=== PATIENT | female | born 1980 | race Caucasian/White ===

== ENCOUNTER → 2017-01-14 | Outpatient (CLI) | payer MEDICARE, OTHER ==
[~2017-01-14] MED LIST: CALCIUM 600 +1 EAC3 PO; KEPPRA500 M1 PO; MULTI-VITAMIN1 EAC1 PO; NAPROSYN500 MG PO; TOPAMAX50 MG PO; VITAMIN D2000 UNI1 PO; ZOLOFT PO
--- NOTE | ~2017-01-14 | CR181 ---
[facility] A Service of [facility] RADIOLOGY TEXT RESULTS PATIENT: KELSIE GUTIERREZ LOCATION: [facility] : 78 UNIT #: [id number] AGE: [address]: Cristian Galvan MD SEX: F ORDER DR: [id number] [facility] [address] [place], [place] [address] [id number] O MR#: [id number] Acc #: [id number] NAME: KELSIE GUTIERREZ. : 1980 SEX: F STUDY DATE/TIME: 01/14/2017 13:26 UNIT: [facility] ROOM: STUDY DESCRIPTION: CR Lumbar Spine 2 or 3 Views Attending Physician: Cristian Galvan M.D. Referring Physician: Cristian Galvan M.D. Ordering Physician: Cristian Galvan M.D. Primary Care Physician: Gregor Nance M.D. MEDICAL IMAGING REPORT This report is preliminary unless electronic signature is present EXAM Lumbar spine series, 3 views, 01/14/2017. COMPARISON None CLINICAL HISTORY 8-10 month history of low back pain; exam is for correlation with total body bone scan. FINDINGS Alignment is normal. There is no fracture or acute abnormality. IMPRESSION Normal. Dictated by... Bhargav Sevilla M.D. THIS IS AN ELECTRONICALLY VERIFIED REPORT Bhargav Sevilla M.D. at 01/19/2017 10:34 AM MK/more TD: 01/14/2017 17:33 JOB #: [id number] MEDICAL IMAGING REPORT Page 1 of 1 COPY
--- NOTE | ~2017-01-14 | NM8 ---
[facility] A Service of [facility] RADIOLOGY TEXT RESULTS PATIENT: KELSIE GUTIERREZ LOCATION: [facility] : 78 UNIT #: [id number] AGE: [address]: Cristian Galvan MD SEX: F ORDER DR: [id number] [place] [id number] [facility]. [place], [place] [address] [id number] O MR#: [id number] Acc #: [id number] NAME: KELSIE GUTIERREZ. : 1980 SEX: F STUDY DATE/TIME: 01/14/2017 12:15 UNIT: [facility] ROOM: STUDY DESCRIPTION: FL Bone or Joint Whole Body Attending Physician: Cristian Galvan M.D. Referring Physician: Cristian Galvan M.D. Ordering Physician: Cristian Galvan M.D. Primary Care Physician: Gregor Nance M.D. MEDICAL IMAGING REPORT This report is preliminary unless electronic signature is present EXAM Nuclear medicine whole body bone scan HISTORY A 36-year-old female predominantly knee pain, left greater than right, involved in [employer] accident. COMPARISON STUDIES Bilateral knee films 01/03/17 and lumbar spine films 01/14/17 FINDINGS Whole body and selected spot images were performed of the axial and appendicular skeleton following the intravenous administration of 28.4 mCi of Tc-99m MDP. The examination demonstrates mild increased uptake within the right knee, predominantly in the patellofemoral joint and may reflect developing chondromalacia and/or arthrosis. There is questionable increased uptake in the lumbar spine at the L4 level seen only on the anterior acquisitions. Following review of conventional radiographs and review of the additional oblique images, this is most likely artifactual due to lumbar lordosis and no findings to suggest underlying spinal pathology. Uptake within the remainder of the axial and appendicular skeleton unremarkable except for a small amount of increased uptake in the right great toe probably degenerative in nature. Bilateral renal activity and normal bladder activity noted. IMPRESSION 1. Mild increased uptake in the right knee patellofemoral joint may reflect early arthrosis. 2. Subtle increased uptake in the right great toe could also be degenerative or posttraumatic in nature. [facility] A Service of [facility] RADIOLOGY TEXT RESULTS PATIENT: KELSIE GUTIERREZ [id number] [birth year] UNIT #: [id number] AGE: [address]: Cristian Galvan MD SEX: F ORDER DR: Dictated by... Marah Flores M.D. THIS IS AN ELECTRONICALLY VERIFIED REPORT Marah Flores M.D. at 01/18/2017 9:33 AM Rafa TD: 01/15/2017 00:39 JOB #: [id number] MEDICAL IMAGING REPORT Page 1 of 1 COPY
== END | disposition home or self-care (01) ==
LOC: CNUC 08:29
DX: M25.562 Pain in left knee (principal); R94.8 Abnormal results of function studies of other organs and systems
CPT/HCPCS: 72100; 78306; A9503